=== PATIENT | female | born 1965 | race Caucasian/White ===

== ENCOUNTER 2017-01-18 12:38 | Day surgery (SDC) | payer OTHER ==
[~2017-01-18] VITALS: Ht 160 cm; Wt 58.4 kg
[2017-01-18 12:53] VITALS: Ht 160 cm; Wt 58.4 kg
[2017-01-18] MEDS ORDERED: OMEPRAZOLE (12:57)
[2017-01-18 13:28] VITALS: BP 123/59; PULSE 48; RESP 24
[2017-01-18] MEDS ORDERED: LIDOCAINE 4% SOLUTION 50 ML BTL ONE (14:35)
[2017-01-18] MEDS ORDERED: MIDAZOLAM 1 MG/ML 2 ML INJ ONE ×2 (15:17)
[2017-01-18] MEDS ORDERED: FENTAnyl 50 MCG/ML VIAL ONE (15:17)
--- NOTE | 2017-01-18 16:04 | OPPN ---
Date/Time of Note Date/Time of Note DATE: 01/18/17 TIME: 16:02 Operative Report Preoperative Diagnosis REFLUX Postoperative Diagnosis MILD ESOPHAGITIS Operation/Procedure Performed EGD BX Provider: RUPAL WAN MD Anesthesia Type: moderate sedation Estimated blood loss: none Transfusion Required: no Specimen: none Grafts/Implants: none Complications: no RUPAL WAN MD Jan 18, 2017 16:04
--- NOTE | 2017-01-18 16:05 | OPPN ---
Date/Time of Note Date/Time of Note DATE: 01/18/17 TIME: 16:04 Operative Report Preoperative Diagnosis SCREENING COLONOSCOPY Postoperative Diagnosis NORMAL Operation/Procedure Performed COLONOSCOPY Anesthesia Type: moderate sedation Estimated blood loss: none Transfusion Required: no Specimen: none Grafts/Implants: none Complications: no RUPAL WAN MD Jan 18, 2017 16:05
--- NOTE | 2017-01-19 04:25 | GILP ---
DATE OF PROCEDURE: 01/18/2017 PREOPERATIVE DIAGNOSIS: Gastroesophageal reflux. POSTOPERATIVE DIAGNOSES: 1. Mild esophagitis. 2. Normal stomach. 3. Normal duodenum. PROCEDURE PERFORMED: EGD, biopsy, random biopsy of the stomach. DESCRIPTION OF PROCEDURE: After obtaining informed consent, patient gargled 4 percent Xylocaine, 2 mg IV Versed and 50 mcg of fentanyl given. Very carefully advanced an Olympus video upper endoscope into the esophagus, stomach and duodenum. Examination demonstrated mild esophagitis in the distal esophagus, but no ulcers, no erosions. In the stomach, it was actually normal in the fundus and body and antrum. Random biopsy done to rule out any H pylori. Then, duodenum easily entered. Duodenal bulb, 1st and 2nd part of the duodenum normal. Upon removal of scope, patient had no complication. PLAN: Await for biopsy report and follow up as outpatient and proceed with colonoscopy as planned. Dictated By: Linda Silva MD /[email or web address]/jaz /Document#: [id number] ; Dr. Zafar Gould
--- NOTE | 2017-01-19 04:25 | GILP ---
DATE OF PROCEDURE: 01/18/2017 PREOPERATIVE DIAGNOSIS: Colonoscopy screening. POSTOPERATIVE DIAGNOSIS: Normal colonoscopy. DESCRIPTION OF PROCEDURE: After obtaining informed consent, after sedation, after EGD, further sedation was done. Monitoring continued. 1 mg of IV Versed and 25 mcg of fentanyl given very carefully. Advanced an Olympus video pediatric colonoscope all the way to the cecum. Ileocecal valve, appendiceal opening identified. Cecum, ascending colon, transverse colon, descending colon, sigmoid colon, and rectum were normal. Retroflexion in the rectum also normal. Upon removal of scope, patient had no complication. RECOMMENDATION: Follow her with primary MD. Await for biopsy report of the EGD and repeat colonoscopy in 10 years. Dictated By: Linda Silva MD /[email or web address]/jaz /Document#: [id number] ; Dr. Zafar Gould
== END 2017-01-18 15:37 | disposition home or self-care (01) ==
LOC: GIL 12:38
PROVIDERS: ATTEND Internal Medicine
DX: K92.1 Melena (principal); K20.8 Other esophagitis
CPT/HCPCS: 43239; 45378; 88305; 88312; J2250; J3010